=== PATIENT | female | born 1960 | race Caucasian/White ===

== ENCOUNTER 2020-03-07 08:45 | Outpatient (CLI) | payer OTHER, SELFPAY ==
--- NOTE | 2020-03-07 08:53 | MM_ITS ---
WS: [id number] BILATERAL DIGITAL SCREENING MAMMOGRAPHY WITH CAD CLINICAL INFORMATION: SCREENING HISTORY: Screening mammogram. No current complaints. COMPARISON: TECHNIQUE: Bilateral CC and MLO views. FINDINGS: Scattered fibroglandular densities bilaterally. No suspicious focal mass, asymmetry, calcifications, or architectural distortion. No evidence of malignancy. Punctate and lucent centered calcifications. Secretory calcifications. MM/[place] [id number] IMPRESSION: BI-RADS: 2-Benign FOLLOW UP: 1 Year Follow-up Recommend return to annual screening mammography.
== END 2020-03-07 08:46 | disposition home or self-care (01) ==
LOC: RADSHAW 08:48
PROVIDERS: PCP Physician Assistant Medical; Visit Provider Physician Assistant Medical
DX: Z12.31 Encounter for screening mammogram for malignant neoplasm of breast (principal)
CPT/HCPCS: 77067

== ENCOUNTER → 2021-08-20 16:17 | Outpatient (BNVA) | payer OTHER, SELFPAY | PROVIDERS: PCP Family Medicine; Referring Provider Family Medicine; Visit Provider Internal Medicine | DX: E03.9 Hypothyroidism, unspecified (principal); E11.9 Type 2 diabetes mellitus without complications; E78.2 Mixed hyperlipidemia; E55.9 Vitamin D deficiency, unspecified | CPT/HCPCS: 36415; 80053; 80061; 82306; 83036; 84439; 84443; 86376 ==

== ENCOUNTER 2021-10-02 09:49 | Outpatient (CLI) | payer OTHER, SELFPAY ==
--- NOTE | 2021-10-02 10:00 | US_ITS ---
WS: [id number] Thyroid ultrasound, 10/02/2021 Clinical Data: Thyroid nodule Comparison: None. Findings: The right lobe of thyroid measures 3.3 cm x 0.9 cm x 0.9 cm. There is a mid thyroid cyst measuring 0. 56 x 0.64 x 0.89 cm. There is a small nodule with internal echoes in the superior thyroid measuring 0 .23 0.28 x 0.38 cm. The left lobe measures 4.0 cm x 1.2 cm x 1.4 cm. There is a superior thyroid nodule with internal ech oes and smooth border measuring 0.69 x 0.80 x 0.81 cm. Is a mid thyroid nodule measures 0.96 x 1.10 c m with internal echoes. The isthmus measured 0.2 mm. The echotexture of the thyroid is uniform. No nodules, cyst or masses are seen. US/US thyroid [id number] Impression: Multinodular goiter.
== END 2021-10-02 09:50 | disposition home or self-care (01) ==
PROVIDERS: PCP Family Medicine; Visit Provider Internal Medicine
DX: E03.9 Hypothyroidism, unspecified (principal); E04.2 Nontoxic multinodular goiter
CPT/HCPCS: 76536

== ENCOUNTER 2022-02-09 08:29 | Outpatient (CLI) | payer OTHER, SELFPAY ==
--- NOTE | 2022-02-09 08:41 | MM_ITS ---
WS: [id number] BILATERAL SCREENING DIGITAL TOMOSYNTHESIS MAMMOGRAM WITH CAD HISTORY: SCREENING COMPARISON: 03/07/2020 and 03/06/2013, 04/23/2010 Bilateral CC and MLO views with tomosynthesis and synthetic mammography submitted. Computer aided det ection analyzed. Breast composition: There are scattered areas of fibroglandular density. No suspicious masses, microc alcifications or architectural distortion. Long-term stability 7 mm mass upper outer quadrant RIGHT b reast. Benign calcifications in each breast. MM/[place] [id number] IMPRESSION: BI-RADS: 2-Benign FOLLOW UP: 1 Year Follow-up
== END 2022-02-09 08:30 | disposition home or self-care (01) ==
LOC: RAD 08:34
PROVIDERS: PCP Family Medicine; Visit Provider Family Medicine
DX: Z12.31 Encounter for screening mammogram for malignant neoplasm of breast (principal)
CPT/HCPCS: 77063; 77067

== ENCOUNTER 2022-02-17 08:03 | Outpatient (CLI) | payer OTHER, SELFPAY ==
[2022-02-17 09:04] LABS: Alanine Aminotransferase 25 U/L (0-33); Albumin Level 4.7 g/dL (3.5-5.2); Alkaline Phosphatase 88 U/L (35-105); Anion Gap 13.4 (5-19); Aspartate Amino Transferase 18 U/L (0-32); Blood Urea Nitrogen 18 mg/dL (8-23); Calcium 9.2 mg/dL (8.5-10.5); Carbon Dioxide 27 mmol/L (22-29); Chloride 102 mmol/L (98-107); Chol HDL Ratio 5.02 mg/dL (0.0-4.40); Cholesterol 211 mg/dL (0-200); Globulin 2.6 g/dL (1.3-4.6); Glomerular Filtration Rate 84.5 mL/min (90-130); Glucose 148 mg/dL (65-115); HDL Cholesterol 42 mg/dL (60-100); LDL Cholesterol Calculated 132 mg/dL (50-129); LDL HDL Ratio 3.14 RATIO (0.00-3.22); Osmolality Calculated 291 mOsm/kg (285-295); Potassium 4.4 mmol/L (3.5-5.1); Sodium 138 mmol/L (136-145); Thyroid Stimulating Hormone 5.29 uIU/mL (0.27-4.20); Total Bilirubin 0.4 mg/dL (0.15-1.2); Total Protein 7.3 g/dL (6.6-8.7); Triglycerides 186 mg/dL (0-150)
[2022-02-17 09:36] LABS: Creatinine Urine, Random 20 mg/dL (28-217); Microalbum Creatinine Ratio Ur 50 mg/dL (0-20); Microalbumin Random Urine 1 ug/dL (0-20)
[2022-02-17 09:55] LABS: Estmated Average Glucose 146; Hemoglobin A1C 6.7 % (4.0-6.0)
== END 2022-02-17 08:04 | disposition home or self-care (01) ==
PROVIDERS: PCP Family Medicine; Visit Provider Internal Medicine
DX: E11.9 Type 2 diabetes mellitus without complications (principal); E78.2 Mixed hyperlipidemia
CPT/HCPCS: 36415; 80053; 80061; 82044; 83036; 84439; 84443

== ENCOUNTER 2023-08-05 07:02 | Outpatient (CLI) | payer OTHER, SELFPAY ==
--- NOTE | 2023-08-05 07:15 | US_ITS ---
WS: [id number] ULTRASOUND THYROID TECHNIQUE: Ultrasound of the thyroid. CLINICAL INFORMATION: thyroid COMPARISON: 10/02/2021 FINDINGS: Thyroid: Right and left thyroid lobes are normal in size and echotexture. Right thyroid lobe: 3.3 cm x 0.9 cm x 1.6 cm Simple cyst RIGHT mid thyroid measuring 7 x 7 x 10 mm Left thyroid lobe: 2.3 cm x 0.9 cm x 1.5 cm. Tiny incidental colloid cyst. Hypoechoic LEFT inferior thyroid nodule measuring 9 x 9 x 11 mm. This i s unchanged compared to previous Isthmus: 0.3 mm. Cervical lymphadenopathy: None. US/US thyroid [id number] IMPRESSION: 1. Simple anechoic cyst RIGHT mid thyroid. Hypoechoic LEFT inferior thyroid nodule measuring 9 x 9 x 11 mm appears unchang ed. TIRADS Category 4: Moderately suspicious (total points = 4) FNA if e1.5 cm Follow if e1 cm (at 1, 2, 3, and 5 years)
== END 2023-08-05 07:03 | disposition home or self-care (01) ==
PROVIDERS: PCP Family Medicine; Visit Provider Internal Medicine
DX: E04.1 Nontoxic single thyroid nodule (principal); E03.9 Hypothyroidism, unspecified
CPT/HCPCS: 76536

== ENCOUNTER 2024-02-01 07:47 | Outpatient (CLI) | payer MEDICARE, SELFPAY ==
[2024-02-01 09:24] LABS: Creatinine Urine, Random 24 mg/dL (28-217); Microalbum Creatinine Ratio Ur 42 mg/dL (0-20); Microalbumin Random Urine 1 ug/dL (0-20)
[2024-02-01 09:24] LABS: Alanine Aminotransferase 30 U/L (0-33); Albumin Level 4.6 g/dL (3.5-5.2); Alkaline Phosphatase 92 U/L (35-105); Anion Gap 16.3 (5-19); Aspartate Amino Transferase 20 U/L (0-32); Blood Urea Nitrogen 17 mg/dL (8-23); Calcium 9.4 mg/dL (8.5-10.5); Carbon Dioxide 23 mmol/L (22-29); Chloride 101 mmol/L (98-107); Chol HDL Ratio 4.95 mg/dL (0.0-4.40); Cholesterol 213 mg/dL (0-200); Free T4 Free Thyroxine 1.04 ng/dL (0.82-1.77); Globulin 2.6 g/dL (1.3-4.6); Glucose 153 mg/dL (65-115); HDL Cholesterol 43 mg/dL (60-100); LDL Cholesterol Calculated 140 mg/dL (50-129); LDL HDL Ratio 3.26 RATIO (0.00-3.22); Osmolality Calculated 287 mOsm/kg (285-295); Potassium 4.3 mmol/L (3.5-5.1); Sodium 136 mmol/L (136-145); Thyroid Stimulating Hormone 3.28 uIU/mL (0.27-4.20); Total Bilirubin 0.3 mg/dL (0.15-1.2); Total Protein 7.2 g/dL (6.6-8.7); Triglycerides 150 mg/dL (0-150)
[2024-02-01 09:31] LABS: Estmated Average Glucose 151; Hemoglobin A1C 6.9 % (4.0-6.0)
[2024-02-01 09:57] LABS: 25 Hydroxy Vitamin D 27 ng/mL (30-100)
== END 2024-02-01 07:48 | disposition home or self-care (01) ==
PROVIDERS: Internal Medicine; PCP Family Medicine; Visit Provider Family Medicine
DX: E78.2 Mixed hyperlipidemia (principal); E11.9 Type 2 diabetes mellitus without complications; E03.9 Hypothyroidism, unspecified; E55.9 Vitamin D deficiency, unspecified
CPT/HCPCS: 36415; 80053; 80061; 82044; 82306; 83036; 84439; 84443

== ENCOUNTER 2024-02-01 13:00 | Outpatient (CLI) | payer MEDICARE, SELFPAY ==
--- NOTE | 2024-02-01 13:01 | MM_ITS ---
WS: [id number] BILATERAL 3D TOMOSYNTHESIS DIGITAL SCREENING MAMMOGRAPHY WITH CAD CLINICAL INFORMATION: SCREENING HISTORY: Screening mammogram. No current complaints. COMPARISON: 2021 TECHNIQUE: Bilateral CC and MLO views. FINDINGS: Scattered fibroglandular densities bilaterally. No suspicious focal mass, asymmetry, calcifications, or architectural distortion. No evidence of malignancy. Secretory and punctate calcifications RIGHT b reast. Stable prominent fatty axillary lymph nodes MM/MM scr BI tomosynthesis [id number] IMPRESSION: DENSITY: There are scattered areas of fibroglandular density. BI-RADS: 2 - Benign. FOLLOW UP: 1 Year Follow-up Recommend return to annual screening mammography.
== END 2024-02-01 13:01 | disposition home or self-care (01) ==
LOC: RAD 13:00
PROVIDERS: PCP Family Medicine; Visit Provider Family Medicine
DX: Z12.31 Encounter for screening mammogram for malignant neoplasm of breast (principal); R92.323 Mammographic fibroglandular density, bilateral breasts; R92.1 Mammographic calcification found on diagnostic imaging of breast
CPT/HCPCS: 77063; 77067

== ENCOUNTER → 2024-02-02 09:21 | Outpatient (BNVA) | payer MEDICARE, SELFPAY | PROVIDERS: PCP Family Medicine; Visit Provider Internal Medicine | DX: E55.9 Vitamin D deficiency, unspecified (principal); E78.2 Mixed hyperlipidemia; E11.9 Type 2 diabetes mellitus without complications; E03.9 Hypothyroidism, unspecified; E66.9 Obesity, unspecified | CPT/HCPCS: 99214 ==

== ENCOUNTER → 2024-05-02 10:05 | Outpatient (BNVA) | payer MEDICARE, SELFPAY | PROVIDERS: PCP Family Medicine; Visit Provider Internal Medicine | DX: E55.9 Vitamin D deficiency, unspecified (principal); E78.2 Mixed hyperlipidemia; E11.9 Type 2 diabetes mellitus without complications; E03.9 Hypothyroidism, unspecified | CPT/HCPCS: 80053; 80061; 82043; 82306; 83036; 84439; 84443 ==

== ENCOUNTER → 2024-05-04 09:17 | Outpatient (BNVA) | payer MEDICARE, SELFPAY | PROVIDERS: PCP Family Medicine; Visit Provider Internal Medicine | DX: E55.9 Vitamin D deficiency, unspecified (principal); E03.9 Hypothyroidism, unspecified; E04.1 Nontoxic single thyroid nodule; E78.2 Mixed hyperlipidemia; E11.9 Type 2 diabetes mellitus without complications; E66.9 Obesity, unspecified | CPT/HCPCS: 99214 ==

== ENCOUNTER 2024-07-24 11:02 | Outpatient (CLI) | payer MEDICARE, SELFPAY ==
--- NOTE | 2024-07-24 11:30 | US_ITS ---
WS: [id number] THYROID ULTRASOUND HISTORY: Thyroid nodule COMPARISON: 08/05/2023 Right lobe: 0.9 cm x 1.2 cm x 3.1 cm (w x ap x l). Volume: 1.7 cm3. Small caliber thyroid. Colloid cyst central gland measures 0.8 x 0.7 x 1.2 cm. No solid mass. Left lobe: 1.0 cm x 1.6 cm x 3.1 cm (w x ap x l). Volume: 2.4 cm3. Low normal sized gland. Heterogeneous gland with a hypoechoic nodule in the mid gland measuring 0.9 x 0.8 x 1.3 cm. No echogenic foci identified. No increase in size. Isthmus: 0.3 cm. US/US thyroid [id number] IMPRESSION: 1. TI-RADS 4; mid LEFT thyroid nodule. Recommend continued yearly follow-up by ultrasound. No FNA at this time due to small size. 2. Colloid cysts RIGHT thyroid.
== END 2024-07-24 11:03 | disposition home or self-care (01) ==
PROVIDERS: PCP Family Medicine; Visit Provider Internal Medicine
DX: E04.1 Nontoxic single thyroid nodule (principal)
CPT/HCPCS: 76536

== ENCOUNTER 2024-08-14 06:54 | Outpatient (CLI) | payer MEDICARE, SELFPAY ==
[2024-08-14 07:50] LABS: Free T4 Free Thyroxine 1.24 ng/dL (0.82-1.77); Thyroid Stimulating Hormone 3.59 uIU/mL (0.27-4.20)
== END 2024-08-14 06:55 | disposition home or self-care (01) ==
PROVIDERS: PCP Family Medicine; Visit Provider Internal Medicine
DX: E55.9 Vitamin D deficiency, unspecified (principal); E03.9 Hypothyroidism, unspecified; E11.9 Type 2 diabetes mellitus without complications; E78.2 Mixed hyperlipidemia; E66.9 Obesity, unspecified
CPT/HCPCS: 36415; 82306; 84439; 84443; 99214

== ENCOUNTER 2024-11-29 07:54 | Outpatient (CLI) | payer MEDICARE, SELFPAY ==
[2024-11-29 08:37] LABS: Estmated Average Glucose 111; Hemoglobin A1C 5.5 % (4.0-6.0)
[2024-11-29 08:45] LABS: Creatinine Urine, Random 188 mg/dL (28-217); Microalbum Creatinine Ratio Ur 16 mg/dL (0-20)
[2024-11-29 09:10] LABS: Alanine Aminotransferase 15 U/L (0-33); Albumin Level 4.4 g/dL (3.5-5.2); Alkaline Phosphatase 83 U/L (35-105); Anion Gap 14.9 (5-19); Aspartate Amino Transferase 15 U/L (0-32); Blood Urea Nitrogen 19 mg/dL (8-23); Calcium 9.0 mg/dL (8.5-10.5); Carbon Dioxide 23 mmol/L (22-29); Chloride 103 mmol/L (98-107); Cholesterol 199 mg/dL (0-200); Globulin 2.7 g/dL (1.3-4.6); Glucose 95 mg/dL (65-115); HDL Cholesterol 50 mg/dL (60-100); Osmolality Calculated 286 mOsm/kg (285-295); Potassium 3.9 mmol/L (3.5-5.1); Sodium 137 mmol/L (136-145); Thyroid Stimulating Hormone 2.92 uIU/mL (0.27-4.20); Total Protein 7.1 g/dL (6.6-8.7); Triglycerides 121 mg/dL (0-150)
[2024-11-29 09:42] LABS: Free T4 Free Thyroxine 1.24 ng/dL (0.82-1.77)
== END 2024-11-29 07:55 | disposition home or self-care (01) ==
LOC: LAB 07:56
PROVIDERS: PCP Family Medicine; Visit Provider Internal Medicine
DX: E03.9 Hypothyroidism, unspecified (principal); E55.9 Vitamin D deficiency, unspecified; E11.9 Type 2 diabetes mellitus without complications
CPT/HCPCS: 36415; 80053; 80061; 82044; 82306; 83036; 84439; 84443

== ENCOUNTER → 2024-12-06 09:52 | Outpatient (BNVA) | payer MEDICARE, SELFPAY | PROVIDERS: PCP Family Medicine; Visit Provider Dermatology | DX: L64.8 Other androgenic alopecia (principal); L82.1 Other seborrheic keratosis; L91.8 Other hypertrophic disorders of the skin; L82.0 Inflamed seborrheic keratosis; L29.89 Other pruritus; R20.8 Other disturbances of skin sensation; L53.8 Other specified erythematous conditions; D48.5 Neoplasm of uncertain behavior of skin; L57.0 Actinic keratosis | CPT/HCPCS: 11102; 17000; 17110; 99204 ==

== ENCOUNTER → 2024-12-19 13:06 | Outpatient (BNVA) | payer MEDICARE, SELFPAY | PROVIDERS: PCP Family Medicine; Visit Provider Dermatology | DX: C44.519 Basal cell carcinoma of skin of other part of trunk (principal) | CPT/HCPCS: 11602; 12032 ==